=== PATIENT | male | born 1955 | race Caucasian/White ===

== ENCOUNTER 2017-09-21 13:11 | Day surgery (SDC) | payer BC ==
[~2017-09-21] VITALS: Ht 170.2 cm; Wt 95.2 kg
== END 2017-09-21 16:02 | disposition home or self-care (01) ==
LOC: ORSCSDS 13:11
PROVIDERS: Internal Medicine Gastroenterology
PROC: 0DB58ZX Excision of Esophagus, Via Natural or Artificial Opening Endoscopic, Diagnostic (ICD-10-PCS; principal; 2017-09-21 14:30)
PROC: 0DBM8ZX Excision of Descending Colon, Via Natural or Artificial Opening Endoscopic, Diagnostic (ICD-10-PCS; principal; 2017-09-21 14:30)
PROC: 0DBP8ZX Excision of Rectum, Via Natural or Artificial Opening Endoscopic, Diagnostic (ICD-10-PCS; principal; 2017-09-21 14:30)
DX: R11.0 Nausea (principal); K22.10 Ulcer of esophagus without bleeding; K44.9 Diaphragmatic hernia without obstruction or gangrene; D12.4 Benign neoplasm of descending colon; D12.8 Benign neoplasm of rectum; Z12.11 Encounter for screening for malignant neoplasm of colon

== ENCOUNTER 2023-02-25 09:19 | Day surgery (SDC) | payer MEDICARE, OTHER ==
[~2023-02-25] VITALS: Ht 170.2 cm; Wt 97.4 kg
--- NOTE | 2023-02-25 10:08 | NUR ---
02/25/23 1008 Karli Garvey ATTEMPTED IV INSERTION IN R HAND, BUT WAS UNSUCCESSFUL. AFTER INSERTING IV INTO AC, PT BECAME BAEZ AND CLAIMED HE FELT THOUGH HE WERE GOING TO PASS OUT. NOTIFIED DR LANG, WHO SAID TO GIVE HIM LOTS OF FLUIDS AND MONITOR HIM BEFORE HE GOES BACK TO PROCEDURE ROOM.
[2023-02-25 12:06] VITALS: BP 105/80
== END 2023-02-25 12:04 | disposition home or self-care (01) ==
LOC: ORSCSDS 09:19
PROVIDERS: Internal Medicine Gastroenterology
PROC: 0DBP8ZX Excision of Rectum, Via Natural or Artificial Opening Endoscopic, Diagnostic (ICD-10-PCS; principal; 2023-02-25 10:30)
PROC: 0DB58ZX Excision of Esophagus, Via Natural or Artificial Opening Endoscopic, Diagnostic (ICD-10-PCS; principal; 2023-02-25 10:30)
DX: K21.00 Gastro-esophageal reflux disease with esophagitis, without bleeding (principal); Z12.11 Encounter for screening for malignant neoplasm of colon; Z86.010 Personal history of colon polyps; K22.70 Barrett's esophagus without dysplasia; K62.1 Rectal polyp; K44.9 Diaphragmatic hernia without obstruction or gangrene; K57.30 Diverticulosis of large intestine without perforation or abscess without bleeding; Z85.46 Personal history of malignant neoplasm of prostate
CPT/HCPCS: 88305; 88312; J2704; J7120

== ENCOUNTER 2023-05-04 09:10 | Day surgery (SDC) | payer MEDICARE, OTHER ==
[~2023-05-04] VITALS: Ht 170.2 cm; Wt 88.6 kg
[2023-05-04] MEDS ORDERED: OMEP20ER PO (09:37)
[2023-05-04 11:55] VITALS: BP 110/55
== END 2023-05-04 11:51 | disposition home or self-care (01) ==
LOC: ORSCSDS 09:10
PROVIDERS: Internal Medicine Gastroenterology
PROC: 0DJ08ZZ Inspection of Upper Intestinal Tract, Via Natural or Artificial Opening Endoscopic (ICD-10-PCS; principal; 2023-05-04 10:30)
DX: K22.70 Barrett's esophagus without dysplasia (principal); K21.00 Gastro-esophageal reflux disease with esophagitis, without bleeding; K44.9 Diaphragmatic hernia without obstruction or gangrene; Z79.899 Other long term (current) drug therapy
CPT/HCPCS: 88305; 88312; J2704; J7120